=== PATIENT | male | born 2000 | race Caucasian/White ===

== ENCOUNTER 2023-02-17 00:04 | Emergency (ER) | payer OTHER ==
[2023-02-17 00:30] VITALS: BP 126/82; PULSE 82; RESP 20; TEMP 98.8; BMI 25.8
[2023-02-17] MEDS ORDERED: valACYclovir HCL 500 MG TABLET (FP) PO ONE (01:01)
[2023-02-17] MEDS ORDERED: DOXYCYCLINE HYCLATE 100 MG CAPSULE PO ONE ×2 (01:03→01:47)
[2023-02-17] MEDS ORDERED: valACYclovir HCL 500 MG TABLET (FP) ONE (01:46)
[2023-02-17] MEDS ORDERED: cefTRIAXone SODIUM 1 GM VIAL ONE (01:47)
[2023-02-17 02:16] LABS: PH,URINE 5.5 (5.0-8.0); URINE APPEARANCE CLEAR; URINE BILIRUBIN NEGATIVE (NEGATIVE); URINE COLOR YELLOW; URINE GLUCOSE (UA) NEGATIVE (NEGATIVE); URINE KETONE TRACE (NEGATIVE); URINE LEUK ESTERASE NEGATIVE (NEGATIVE); URINE NITRITE NEGATIVE (NEGATIVE); URINE PROTEIN NEGATIVE (NEGATIVE)
[2023-02-17 11:42] LABS: SYPHILIS W/ RPR CONF NON-REACTIVE (NONREACTIVE)
[2023-02-17 12:11] LABS: HIV INTERPRETATION NEGATIVE (NEGATIVE)
== END 2023-02-17 02:11 | disposition home or self-care (01) ==
LOC: JER 00:04
DX: R21 Rash and other nonspecific skin eruption (principal)
CPT/HCPCS: 36415; 81003; 86707; 86780; 87086; 87350; 87389; 87491; 87517; 87522; 87591; 99284-25

== ENCOUNTER 2024-01-11 19:54 | Day surgery (SDC) | payer OTHER ==
[2024-01-11] MEDS ORDERED: FAMOTIDINE 20 MG/50 ML IVPB 20 MG/50 ML MG IVPB ONE (21:48)
[2024-01-11] MEDS ORDERED: MAG HYDROX/AL HYDROX/SIMETH 30 ML UNIT-DOSE CUP ONE (21:48)
[2024-01-11] MEDS ORDERED: ACETAMINOPHEN INJECTION 100 ML IVPB ONE (21:52)
[2024-01-11] MEDS: ACETAMINOPHEN 1000 MG/100 ML BAG IVPB ONE (21:54)
[2024-01-11] MEDS: FAMOTIDINE 20 MG/50 ML IVPB 20 MG/50 ML MG IVPB ONE (21:54)
[2024-01-11] MEDS: MAG HYDROX/AL HYDROX/SIMETH 30 ML UNIT-DOSE CUP PO ONE (21:54)
[2024-01-11] MEDS: SODIUM CHLORIDE 0.9% 500 ML INFUS.BAG IV ONE (21:54)
[2024-01-11 21:58] LABS: BASO % 1.1 % (0-2.0); HEMATOCRIT 48.4 % (35.4-49); HEMOGLOBIN 16.4 GM/dL (11.7-16.9); LYMPH % 33.5 % (8-40); MCH 29.6 pg (25.7-33.7); MCHC 33.9 g/dl (32.0-35.9); MEAN CELL VOLUME 87.2 fl (80-96); MEAN PLT VOLUME 7.9 fl (7.5-11.1); NEUT % 51.4 % (42.8-82.8); PLATELET COUNT 290 10^3/uL (134-434); RBC 5.55 M/mm3 (4.00-5.60); RDW 14.2 % (11.9-15.9); WHITE BLOOD COUNT 8.8 K/mm3 (4.0-10.0)
[2024-01-11 21:59] LABS: PH,URINE 5.5 (5.0-8.0); URINE APPEARANCE CLEAR; URINE BILIRUBIN NEGATIVE (NEGATIVE); URINE COLOR DK YELLOW; URINE GLUCOSE (UA) NEGATIVE (NEGATIVE); URINE KETONE TRACE (NEGATIVE); URINE LEUK ESTERASE NEGATIVE (NEGATIVE); URINE NITRITE NEGATIVE (NEGATIVE); URINE PROTEIN NEGATIVE (NEGATIVE)
[2024-01-11 22:04] LABS: INR 1.02 (0.83-1.09); PROTHROMBIN TIME (PATIENT) 11.7 SEC (9.7-13.0)
[2024-01-11 22:07] LABS: ACTIVATED PTT 34.5 SECONDS (25.2-36.5)
[2024-01-11 22:14] LABS: CALCIUM 9.5 mg/dL (8.5-10.1)
[2024-01-11 22:15] LABS: ALBUMIN 4.2 g/dl (3.4-5.0); BLOOD UREA NITROGEN 14.4 mg/dL (7-18)
[2024-01-11 22:18] LABS: CREATININE 0.9 mg/dL (0.55-1.3)
[2024-01-11 22:19] LABS: BILIRUBIN,TOTAL 0.9 mg/dL (0.2-1); TOT PROT 7.5 g/dl (6.4-8.2)
[2024-01-12] MEDS ORDERED: PIPERACILLIN/TAZOB 3.375 GM 3.375 GM/50 ML BAG IVPB ONE (00:41)
[2024-01-12] MEDS: PIPERACILLIN/TAZOB 3.375 GM 3.375 GM in DEXTROSE 5%-WATER - 50 ML IVPB ONE (00:45)
[2024-01-12 04:12] VITALS: BMI 24.5
[2024-01-12] MEDS ORDERED: ACETAMINOPHEN 325 MG TABLET (FP) PO PRN (04:48)
[2024-01-12] MEDS ORDERED: IBUPROFEN 600 MG TABLET (FP) PO PRN (04:49)
[2024-01-12] MEDS: SODIUM CHLORIDE 1,000 ML IV SCH ×3 (05:08→17:31)
[2024-01-12] MEDS: PIPERACILLIN/TAZOB 3.375 GM 3.375 GM in DEXTROSE 5%-WATER - 50 ML IVPB SCH ×2 (06:07→13:06)
[2024-01-12] MEDS ORDERED: PIPERACILLIN/TAZOB 3.375 GM 3.375 GM in DEXTROSE 5%-WATER - 50 ML IVPB SCH (07:00)
[2024-01-12] MEDS ORDERED: BUPIVACAINE HCL/PF 0.25% (2.5MG/ML) 10 ML VIAL ONE (10:43)
[2024-01-12] MEDS ORDERED: DEXAMETHASONE SOD PHOSPHATE 4 MG/1 ML VIAL ONE (12:09)
[2024-01-12] MEDS ORDERED: MIDAZOLAM HCL 2 MG/2 ML SINGLE DOSE VIAL ONE (12:09)
[2024-01-12] MEDS ORDERED: PROPOFOL 20 ML ONE (12:09)
[2024-01-12] MEDS ORDERED: LIDOCAINE HCL/PF 2% SDV 5ML VIAL ONE (12:09)
[2024-01-12] MEDS ORDERED: ROCURONIUM BROMIDE 50 MG/5 ML SYRINGE ONE (12:09)
[2024-01-12] MEDS ORDERED: ONDANSETRON 4 MG/2 ML VIAL ONE (12:09)
[2024-01-12 13:04] LABS: BASO % 0.6 % (0-2.0); EOS % 0.9 % (0-4.5); HEMATOCRIT 45.2 % (35.4-49); HEMOGLOBIN 15.5 GM/dL (11.7-16.9); LYMPH % 19.7 % (8-40); MCH 29.5 pg (25.7-33.7); MCHC 34.3 g/dl (32.0-35.9); MEAN CELL VOLUME 86.1 fl (80-96); MEAN PLT VOLUME 8.1 fl (7.5-11.1); MONO % 10.8 % (3.8-10.2); PLATELET COUNT 270 10^3/uL (134-434); RBC 5.25 M/mm3 (4.00-5.60); RDW 13.9 % (11.9-15.9); WHITE BLOOD COUNT 8.3 K/mm3 (4.0-10.0)
[2024-01-12] MEDS: PIPERACILLIN/TAZOBACTAM 3.375 GM VIAL IVPB ONE (13:23)
[2024-01-12] MEDS: BUPIVACAINE HCL/PF 0.25% (2.5MG/ML) 10 ML VIAL IJ ONE (13:46)
[2024-01-12] MEDS ORDERED: ACETAMINOPHEN INJECTION 100 ML IVPB ONE (14:00)
[2024-01-12 14:04] LABS: POTASSIUM 4.1 mmol/L (3.5-5.1)
[2024-01-12 14:06] LABS: ALBUMIN 3.7 g/dl (3.4-5.0); CALCIUM 8.7 mg/dL (8.5-10.1)
[2024-01-12] MEDS ORDERED: KETOROLAC TROMETHAMINE 30 MG/1 ML VIAL ONE (14:06)
[2024-01-12] MEDS ORDERED: NEOSTIGMINE METHYLSULFATE 0.5 MG/1 ML - 10 ML MDV ONE (14:06)
[2024-01-12 14:07] LABS: MAGNESIUM 2.1 mg/dL (1.8-2.4)
[2024-01-12] MEDS ORDERED: GLYCOPYRROLATE 0.2 MG/1 ML VIAL ONE (14:07)
[2024-01-12 14:10] LABS: CREATININE 0.9 mg/dL (0.55-1.3); PHOSPHOROUS 3.4 mg/dL (2.5-4.9)
[2024-01-12 14:11] LABS: TOT PROT 6.4 g/dl (6.4-8.2)
[2024-01-12 14:13] LABS: BILIRUBIN,TOTAL 1.3 mg/dL (0.2-1)
[2024-01-12] MEDS ORDERED: ONDANSETRON 4 MG/2 ML VIAL IVPUSH PRN (14:54)
[2024-01-12 15:00] LABS: HIV INTERPRETATION NEGATIVE (NEGATIVE)
[2024-01-12] MEDS: LACTATED RINGERS SOLUTION 1,000 ML IV SCH (15:00)
[2024-01-12] MEDS: oxyCODONE HCL 5 MG TABLET PO PRN (16:57)
[2024-01-12] MEDS: KETOROLAC TROMETHAMINE 30 MG/1 ML VIAL IVPUSH SCH (21:15)
[2024-01-12] MEDS: ACETAMINOPHEN 500 MG TABLET (FP) PO SCH (21:15)
[2024-01-12] MEDS: MELATONIN 5 MG TABLETS PO ONE (21:18)
[2024-01-13] MEDS ORDERED: IBUPROFEN 600 MG TABLET (FP) PO PRN ×2 (10:00)
[2024-01-13 15:48] VITALS: BP 108/57; PULSE 96; RESP 18; TEMP 98.9
== END 2024-01-13 17:00 | disposition home or self-care (01) ==
LOC: JER 19:54 → UNDOADMIN 01-12 00:15 → JERBED 01-12 00:15 → J5S 01-12 03:10 → JERBED 01-12 03:10 → JASUSAT 01-12 13:13 → J5S 01-12 13:26 → JASUSAT 01-13 17:00
PROC: 3E033NZ Introduction of Analgesics, Hypnotics, Sedatives into Peripheral Vein, Percutaneous Approach (ICD-10-PCS; 2024-01-12)
PROC: 3E033NZ Introduction of Analgesics, Hypnotics, Sedatives into Peripheral Vein, Percutaneous Approach (ICD-10-PCS; 2024-01-12)
PROC: 3E033GC Introduction of Other Therapeutic Substance into Peripheral Vein, Percutaneous Approach (ICD-10-PCS; principal; 2024-01-12 12:00)
DX: K35.80 Unspecified acute appendicitis (principal); Z20.822 Contact with and (suspected) exposure to COVID-19
CPT/HCPCS: 0241U-QW; 36415; 74177-TC; 76700-TC; 76856-TC; 80053; 81003; 83690; 83735; 84100; 85025; 85610; 85730; 86850; 86900; 86901; 87389; 87491; 87591; 87661; 88304-TC; 93005; 93010; 94760; 96365; 96375; 99285-25; J0131; Q9967

== ENCOUNTER 2024-02-20 20:37 | Emergency (ER) | payer OTHER ==
[2024-02-20 20:44] VITALS: BP 134/82; PULSE 82; RESP 18; TEMP 97.6; BMI 23.7
[2024-02-20] MEDS ORDERED: DOXYCYCLINE HYCLATE 100 MG CAPSULE PO ONE (21:23)
[2024-02-20] MEDS: DOXYCYCLINE HYCLATE 100 MG CAPSULE PO ONE (21:24)
== END 2024-02-20 21:36 | disposition home or self-care (01) ==
LOC: JERFT 20:37
DX: A74.9 Chlamydial infection, unspecified (principal); R30.0 Dysuria
CPT/HCPCS: 99283-25

== ENCOUNTER 2024-05-10 20:12 | Emergency (ER) | payer OTHER ==
[2024-05-10 20:18] VITALS: BP 119/75; PULSE 85; RESP 18; TEMP 98.6; BMI 22.3
[2024-05-10 21:35] LABS: BASO % 0.2 % (0-2.0); EOS % 2.3 % (0-4.5); HEMATOCRIT 51.9 % (35.4-49); HEMOGLOBIN 17.9 GM/dL (11.7-16.9); LYMPH % 28.2 % (8-40); MCH 29.8 pg (25.7-33.7); MCHC 34.5 g/dl (32.0-35.9); MEAN CELL VOLUME 86.4 fl (80-96); MEAN PLT VOLUME 8.2 fl (7.5-11.1); MONO % 7.6 % (3.8-10.2); NEUT % 61.7 % (42.8-82.8); PLATELET COUNT 264 10^3/uL (134-434); RBC 6.01 M/mm3 (4.00-5.60); RDW 13.1 % (11.9-15.9); WHITE BLOOD COUNT 8.1 K/mm3 (4.0-10.0)
[2024-05-10 23:49] LABS: HIV INTERPRETATION NEGATIVE (NEGATIVE)
== END 2024-05-10 22:01 | disposition home or self-care (01) ==
LOC: JER 20:12
DX: K92.1 Melena (principal); K59.00 Constipation, unspecified
CPT/HCPCS: 36415; 85025; 86803; 87389; 99283-25